=== PATIENT | male | born 1945 | race Caucasian/White ===

== ENCOUNTER 2021-02-04 11:00 | Inpatient (IN) ==
[~2021-02-04 11:00] MED LIST: ASPIRIN 325 MG TABLET PO ONE; DIAZEPAM 5 MG TABLET PO ONE; MAGNESIUM SULF RIDER 2 GM/50 ML PREMIX IV PRN; POTASSIUM CHLORIDE RIDER 10 MEQ/100 ML PREMIX IV PRN; diphenhydrAMINE CAP 50 MG CAPSULE PO ONE
[2021-02-04 11:36] LABS: Basophils % 0.7 % (0.0-0.8); Eosinophils # 0.1 10*3/uL (0.0-0.87); Hematocrit 52.1 VOL% (42.0-52.0); Hemoglobin 17.3 GM/DL (14.0-18.0); Immature Granulocytes % 0.5 %; Immature Granulocytes Absolute 0.03 #; Lymphocytes # 1.7 10*3/uL (1.4-4.0); Lymphocytes % 28.2 % (21.2-54.2); Mean Corpuscular HGB Conc 33.2 GM/DL (32-36); Mean Corpuscular Volume 89.8 FL (87-102); Mean Platelet Volume 10.4 FL (9.6-12.0); Monocytes % 7.3 % (1.7-12.7); Neutrophils % 61.3 % (38.7-73.9); Platelet Count 114 T/CUMM (130-400); Red Cell Distribution Width 14.6 % (9.3-17.3); White Blood Count 5.9 T/CUMM (4-12)
[2021-02-04 11:44] LABS: INR 1.4
[2021-02-04] MEDS ORDERED: ASPIRIN 325 MG TABLET ONE (12:00)
[2021-02-04] MEDS ORDERED: diphenhydrAMINE CAP 50 MG CAPSULE ONE (12:00)
[2021-02-04] MEDS ORDERED: DIAZEPAM 5 MG TABLET ONE (12:00)
[2021-02-04] MEDS: SODIUM CHLORIDE 0.9% 1,000 ML IV SCH ×2 (12:06→22:17)
[2021-02-04] MEDS ORDERED: cloNIDine 0.1 MG TABLET PO ONE (12:53)
[2021-02-04] MEDS ORDERED: cloNIDine 0.1 MG TABLET ONE (12:54)
[2021-02-04] MEDS ORDERED: VERAPAMIL 5 MG/2 ML VIAL ONE (13:59)
[2021-02-04] MEDS ORDERED: LIDOCAINE 1% 20 ML VIAL ONE (13:59)
[2021-02-04] MEDS ORDERED: NITROGLYCERIN DRIP 50 MG/250 ML BOTTLE IV ONE (13:59)
[2021-02-04] MEDS ORDERED: HYDROmorphone 2 MG/1 ML VIAL ONE (14:29)
[2021-02-04] MEDS ORDERED: MIDAZOLAM 2 MG/2 ML VIAL ONE (14:30)
[2021-02-04] MEDS ORDERED: HEPARIN 5,000 UNIT/1 ML VIAL ONE (14:53)
[2021-02-04] MEDS ORDERED: ALTEPLASE 2 MG VIAL ONE (15:18)
[2021-02-04] MEDS ORDERED: ONDANSETRON 4 MG/2 ML VIAL IV PRN (15:24)
[2021-02-04] MEDS ORDERED: HYDROmorphone 2 MG/1 ML VIAL IV PRN (15:24)
[2021-02-04] MEDS ORDERED: NITROGLYCERIN SL 0.4 MG TABLET SL PRN (15:24)
[2021-02-04] MEDS ORDERED: ALTEPLASE 12 MG in SODIUM CHLORIDE 0.9% 240 ML IV SCH (16:00)
[2021-02-04] MEDS ORDERED: HEPARIN DRIP 25,000 UNITS/500 ML PREMIX IV SCH (16:00)
[2021-02-04] MEDS ORDERED: amLODIPine 2.5 MG TABLET PO ONE (16:00)
[2021-02-04] MEDS ORDERED: HEPARIN DRIP 25,000 UNITS/500 ML PREMIX IV ONE (16:10)
[2021-02-04 17:37] LABS: Partial Thromboplastin Time 67.2 SECS (23.9-33.8)
[2021-02-04] MEDS ORDERED: PNEUMOCOCCAL VACCINE (13 VALENT) 0.5 ML SYRINGE IM ONE (18:01)
[2021-02-04] MEDS ORDERED: cloNIDine 0.1 MG TABLET PO PRN (19:37)
[2021-02-04] MEDS ORDERED: hydrOXYzine HCL 25 MG TABLET PO PRN (19:38)
[2021-02-05] MEDS: ZALEPLON 5 MG CAPSULE PO PRN ×2 (02:16→21:12)
[2021-02-05 05:46] LABS: Basophils % 0.8 % (0.0-0.8); Eosinophils # 0.1 10*3/uL (0.0-0.87); Hematocrit 46.4 VOL% (42.0-52.0); Hemoglobin 15.6 GM/DL (14.0-18.0); Immature Granulocytes % 0.6 %; Immature Granulocytes Absolute 0.03 #; Mean Corpuscular HGB Conc 33.6 GM/DL (32-36); Mean Corpuscular Volume 89.2 FL (87-102); Mean Platelet Volume 9.8 FL (9.6-12.0); Monocytes % 7.3 % (1.7-12.7); Neutrophils % 69.3 % (38.7-73.9); Platelet Count 79 T/CUMM (130-400); Red Cell Distribution Width 14.6 % (9.3-17.3); White Blood Count 4.8 T/CUMM (4-12)
[2021-02-05 05:53] LABS: Partial Thromboplastin Time 34.5 SECS (23.9-33.8)
[2021-02-05] MEDS ORDERED: SODIUM CHLORIDE 0.9% 1,000 ML IV SCH (06:45)
[2021-02-05 07:50] LABS: Calcium 8.1 MG/DL (8.5-10.1); Osmolality,Calculated 282.3 MOS/KG (273-304); Potassium 4.5 MMOL/L (3.5-5.1)
[2021-02-05] MEDS: amLODIPine 5 MG TABLET PO SCH (08:09)
[2021-02-05] MEDS: SODIUM CHLORIDE 0.9% 1,000 ML IV SCH ×2 (08:34→18:09)
[2021-02-05] MEDS ORDERED: DIAZEPAM 5 MG TABLET PO ONE (11:32)
[2021-02-05] MEDS ORDERED: diphenhydrAMINE CAP 50 MG CAPSULE PO ONE (11:33)
[2021-02-05] MEDS ORDERED: diphenhydrAMINE CAP 25 MG CAPSULE ONE (11:42)
[2021-02-05] MEDS ORDERED: HEPARIN DRIP 25,000 UNITS/500 ML PREMIX IV SCH (12:00)
[2021-02-05] MEDS ORDERED: DEXTROSE 50% 25 GM/50 ML VIAL IV ONE (12:10)
[2021-02-05] MEDS ORDERED: DEXTROSE 50% 25 GM/50 ML VIAL IV PRN (12:12)
[2021-02-05] MEDS ORDERED: LIDOCAINE 1% 20 ML VIAL ONE (12:17)
[2021-02-05] MEDS ORDERED: MIDAZOLAM 2 MG/2 ML VIAL ONE (12:56)
[2021-02-05] MEDS ORDERED: HYDROmorphone 2 MG/1 ML VIAL ONE (12:57)
[2021-02-05] MEDS ORDERED: ceFAZolin 1,000 MG VIAL ONE (13:36)
[2021-02-05] MEDS ORDERED: hydrALAZINE 20 MG/1 ML VIAL ONE (13:56)
[2021-02-05] MEDS ORDERED: HEPARIN 5,000 UNIT/1 ML VIAL ONE (14:09)
[2021-02-05] MEDS ORDERED: LABETALOL 20 MG/4 ML SYRINGE IV ONE (14:27)
[2021-02-05] MEDS ORDERED: ASPIRIN 325 MG TABLET ONE (14:58)
[2021-02-05] MEDS ORDERED: CLOPIDOGREL 300 MG TABLET ONE (14:58)
[2021-02-05] MEDS ORDERED: ACETAMINOPHEN 325 MG TABLET PO PRN (14:58)
[2021-02-05] MEDS ORDERED: carvediloL 3.125 MG TABLET PO ONE (15:04)
[2021-02-05] MEDS: NEBIVOLOL 10 MG TABLET PO SCH (15:59)
[2021-02-05] MEDS ORDERED: carvediloL 3.125 MG TABLET PO SCH (21:00)
[2021-02-05] MEDS: APIXABAN 5 MG TABLET PO SCH (21:11)
[2021-02-06] MEDS: SODIUM CHLORIDE 0.9% 1,000 ML IV SCH (04:33)
[2021-02-06 07:14] LABS: Basophils % 0.6 % (0.0-0.8); Eosinophils % 0.6 % (0.00-10.9); Hematocrit 46.8 VOL% (42.0-52.0); Hemoglobin 15.8 GM/DL (14.0-18.0); Immature Granulocytes % 0.4 %; Immature Granulocytes Absolute 0.02 #; Lymphocytes # 0.7 10*3/uL (1.4-4.0); Lymphocytes % 13.9 % (21.2-54.2); Mean Corpuscular HGB Conc 33.8 GM/DL (32-36); Mean Corpuscular Volume 89.7 FL (87-102); Mean Platelet Volume 10.2 FL (9.6-12.0); Monocytes % 7.4 % (1.7-12.7); Neutrophils % 77.1 % (38.7-73.9); Platelet Count 89 T/CUMM (130-400); Red Blood Count 5.22 MC/CUMM (3.8-5.5); Red Cell Distribution Width 14.8 % (9.3-17.3); White Blood Count 5.2 T/CUMM (4-12)
[2021-02-06 07:41] VITALS: BP 162/103
[2021-02-06 07:51] LABS: Calcium 8.2 MG/DL (8.5-10.1); Potassium 4.1 MMOL/L (3.5-5.1)
[2021-02-06] MEDS: NEBIVOLOL 10 MG TABLET PO SCH (08:52)
[2021-02-06] MEDS: APIXABAN 5 MG TABLET PO SCH (08:52)
[2021-02-06] MEDS: amLODIPine 5 MG TABLET PO SCH (08:53)
[2021-02-06] MEDS ORDERED: ASPIRIN EC 81 MG TABLET PO SCH (09:00)
[2021-02-06 09:41] LABS: Platelet Estimate Adequate
== END 2021-02-06 09:51 | disposition home or self-care (01) | DRG 253 ==
LOC: N.CL 11:00 → N.ICU 16:48 → N.5E 02-05 15:46
PROVIDERS: ADMIT Internal Medicine Cardiovascular Disease; ATTEND Internal Medicine Cardiovascular Disease